=== PATIENT | male | born 1980 ===

== ENCOUNTER 2023-07-09 12:00 | Outpatient (CLI) | payer SELFPAY ==
--- NOTE | ~2023-07-09 | CT_ITS ---
EXAMINATION: CT diagnostic chest wo con DATE: 07/09/2023 12:13 INDICATION: Persistent cough for 3 weeks TECHNIQUE: Computed tomography (CT) of the chest was performed without intravenous contrast. Automate d exposure control and iterative reconstruction technique were employed. Exam dose: 304.92 mGy-cm to gurdeep exam DLP. COMPARISON: None FINDINGS: Normal heart size. No hilar or mediastinal mass lesion or lymphadenopathy. No thoracic aort ic aneurysm. No pericardial or pleural effusion. No pulmonary infiltrate or consolidation or pulmonary mass lesion. The tracheobronchial tree appears normal. Included skeletal structures are unremarkable. IMPRESSION: Negative examination Reviewed, dictated and finalized at [facility]. Reviewed, dictated and finalized at [facility]. [employer]OCI[employer] IMPRESSION: Negative examination
== END 2023-07-09 12:01 ==
DX: R05.3 Chronic cough (principal)
CPT/HCPCS: 71250